=== PATIENT | male | born 1970 | race American Indian/Alaskan Native ===

== ENCOUNTER 2016-08-07 16:26 | Emergency (ER) | payer SELFPAY ==
[2016-08-07 17:27] VITALS: BP 155/104
--- NOTE | 2016-08-07 17:48 | Emergency Department Report ---
Entered by BRENDA MARCELINO, acting as scribe for BRET REYNA NP. Chief Complaint: Extremity Injury, Lower Stated Complaint: LT LEG/BACK PAIN/DIZZINESS - HPI History of Present Illness: 46 y/o male, nontoxic, well developed, NAD, c/o left lower extremity pain 4 days ago. Associated back pain and dizziness but denies recent travel, long car rides, CP, SOB, abd pain, numbness or tingling, calf pain/tenderness, NVD, HENDRICKS. Patient took ibuprofen with no relief of symptoms - Exam Vital Signs: Vital Signs 08/07/16 17:24 Temperature 98.3 F Pulse Rate 72 Respiratory 18 Rate Blood Pressure 155/104 O2 Sat by Pulse 99 Oximetry Physical Exam: GENERAL: The patient is a well-developed, well-nourished male in no apparent distress. Patient is alert and oriented x3. EXTREMITIES: Without any cyanosis, clubbing, rash, lesions or edema. Peripheral pulses intact. Capillary refill less than 2 seconds. Denies calf pain. Diana's sign negative. No edema. No warmth to touch MSE screening note: Focused history and physical exam performed. Due to findings the following was ordered: CBC, BMP, X-ray of left fibula/tibia ED Disposition for MSE Condition: Stable This documentation as recorded by the scribe,BRENDA MARCELINO,accurately reflects the service I personally performed and the decisions made by ,BRET REYNA, BERNARD.
[2016-08-07 17:57] LABS: Basophils % (Auto) 1.3 % (0.0-1.8); Eosinophils % (Auto) 5.2 % (0.0-4.3); Hematocrit 44.3 % (35.5-45.6); Hemoglobin 14.9 gm/dl (11.8-15.2); Mean Corpuscular HGB Conc 34 % (32-34); Mean Corpuscular Hemoglobin 30 pg (28-32); Mean Corpuscular Volume 88 fl (84-94); Platelet Count 136 K/mm3 (140-440); Red Blood Count 5.04 M/mm3 (3.65-5.03); Red Cell Distribution Width 12.9 % (13.2-15.2); White Blood Count 8.2 K/mm3 (4.5-11.0)
[2016-08-07 18:12] LABS: Anion Gap 17 mmol/L; BUN/Creatinine Ratio 18.75; Blood Urea Nitrogen 15 mg/dL (9-20); Calcium 9.1 mg/dL (8.4-10.2); Carbon Dioxide 24 mmol/L (22-30); Chloride 102.9 mmol/L (98-107); Glucose 92 mg/dL (75-100); Sodium 140 mmol/L (137-145)
--- NOTE | 2016-08-07 22:40 | XRay Report ---
FINAL REPORT PROCEDURE: XR TIBIA FIBULA 2V LT TECHNIQUE: LEFT tibia and fibula radiographs, AP and lateral views. CPT 93161 HISTORY: pain lateral tib/fib COMPARISON: No prior studies are available for comparison. FINDINGS: No acute fracture or dislocation is seen. No focal osseous lesions are identified. There are clips in the posterior calf. IMPRESSION: No acute fracture or dislocation is seen.
[2016-08-07] MEDS ORDERED: FLEXERIL PO ONE (23:05)
[2016-08-07] MEDS ORDERED: TORADOL IM ONE (23:05)
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
== END 2016-08-08 02:01 | disposition home or self-care (01) ==
LOC: ED 16:26
DX: S96.912A Strain of unspecified muscle and tendon at ankle and foot level, left foot, initial encounter (principal); I10 Essential (primary) hypertension; F17.200 Nicotine dependence, unspecified, uncomplicated; X58.XXXA Exposure to other specified factors, initial encounter; Y93.9 Activity, unspecified; Y92.9 Unspecified place or not applicable; Y99.9 Unspecified external cause status
CPT/HCPCS: 36415; 73590; 80048; 85025; 96372; 99283; J1885